=== PATIENT | female | born 1955 | race Caucasian/White ===

== ENCOUNTER 2021-06-28 11:00 | Emergency (ER) | payer MEDICARE ==
[~2021-06-28] VITALS: Ht 162.6 cm; Wt 64.0 kg
--- NOTE | 2021-06-28 11:55 | PHYS DOC ---
Past Medical History Past Surgical History: No Surgical History General Adult EDM: Chief Complaint: ANIMAL BITE HPI: HPI: Patient is a 65 year old female who presents the ED today with dog bite to the left forearm. Patient states she was bit by her puppy yesterday. She has other on the dog bites to bilateral forearms that are not infected. Patient states her puppy is up-to-date with its shots. Review of Systems: Review of Systems: Constitutional: Denies fever or chills. [] Musculoskeletal: Denies back pain or joint pain. [] Integument: Reports dog bite to the left forearm Neurologic: Denies headache, focal weakness or sensory changes. [] Psychiatric: Denies depression or anxiety. [] Heart Score: C/O Chest Pain: N/A Risk Factors: Risk Factors: DM, Current or recent (<one month) smoker, HTN, HLP, family history of CAD, obesity. Risk Scores: Score 0 - 3: 2.5% MACE over next 6 weeks - Discharge Home Score 4 - 6: 20.3% MACE over next 6 weeks - Admit for Clinical Observation Score 7 - 10: 72.7% MACE over next 6 weeks - Early Invasive Strategies Current Medications: Current Medications Medications (Trade) Dose Ordered Sig/Lisbet Start Time Stop Time Status Last Admin Dose Admin Diphtheria/ Tetanus/Acell Pertussis (ADACEL TDap SYRINGE) 0.5 ml ONCE ONCE 06/28/21 12:15 06/28/21 12:16 Allergies: Allergies: Allergies Coded Allergies Type Severity Reaction Last Updated Verified No Known Drug Allergies 06/28/21 No Physical Exam: PE: Constitutional: Well developed, well nourished, no acute distress, non-toxic appearance. [] Skin: Left forearm with a new dog bite roughly 2 cm long, there is no drainage from the area. There are multiple other bruises noted on the left forearm and the right forearm from dog bites. Neurovascular exam is intact bilateral upper extremities. +2 bilateral radial pulses. Cap refill less than 2 seconds to bilateral upper extremities. Back: No tenderness, no CVA tenderness. [] Extremities: No tenderness, no cyanosis, no clubbing, ROM intact, no edema. [] Neurologic: Alert and oriented X 3, normal motor function, normal sensory function, no focal deficits noted. [] Psychologic: Affect normal, judgement normal, mood normal. [] Current Patient Data: Vital Signs: Vital Signs Date Time Temp Pulse Resp B/P (MAP) Pulse Ox O2 Delivery O2 Flow Rate FiO2 06/28/21 11:30 98.7 90 16 145/77 (99) 98 Room Air 98.7 EKG: EKG: [] Radiology/Procedures: Radiology/Procedures: [] Course & Med Decision Making: Course & Med Decision Making Pertinent Labs and Imaging studies reviewed. (See chart for details) This a 65-year-old female patient presented to the ED today with dog bites to bilateral upper extremities. Some of them are old. The new one on the left forearm occurred yesterday and its not infected. Was given tetanus in the ED and discharged on Augmentin. Follow-up with PCP in a week. Provided return precautions and wound care instructions Corine Disclaimer: Corine Disclaimer: This electronic medical record was generated, in whole or in part, using a voice recognition dictation system. Departure Departure Impression: Primary Impression: Dog bite of arm Qualified Codes: S41.151A - Open bite of right upper arm, initial encounter; W54.0XXA - Bitten by dog, initial encounter Disposition: HOME / SELF CARE / HOMELESS Condition: STABLE Referrals: ROSITA WALLER MD (PCP) follow up in one week Patient Instructions: Animal Bite, [id number] Additional Instructions: You have dog bites. Please keep the areas clean and dry. You can wash them with basic soap and water. Cover them if they are draining or bleeding. Take the prescribed antibiotics until completed. Follow-up with your primary care doctor in 1 to 2 weeks. Come back to the ED at any point symptoms worsen. Scripts Amoxicillin/Potassium Clav (AUGMENTIN 875-125 TABLET) 1 Each Tablet 1 TAB PO BID for 10 Days, #20 TAB 0 Refills Prov: ATIF BRAVO ROXI 06/28/21 ATIF BRAVO ROXI Jun 28, 2021 11:55
[2021-06-28] MEDS ORDERED: AMOX1TAB61 PO (12:01)
[2021-06-28 12:11] VITALS: BP 144/71
[2021-06-28] MEDS ORDERED: DIPH,PERTUSS(ACELL),TET VAC/PF 0.5 ML SYRINGE. VAX IM ONE (12:15)
== END 2021-06-28 12:23 | disposition home or self-care (01) ==
LOC: ER 11:00
DX: S50.12XA Contusion of left forearm, initial encounter (principal); S50.11XA Contusion of right forearm, initial encounter; W54.0XXA Bitten by dog, initial encounter; Y93.89 Activity, other specified; Y92.89 Other specified places as the place of occurrence of the external cause; Y99.8 Other external cause status
CPT/HCPCS: 90471; 90715; 99283

== ENCOUNTER 2021-09-12 05:46 | Inpatient (IN) | payer MEDICARE ==
[~2021-09-12] VITALS: Ht 160 cm; Wt 51.5 kg
[~2021-09-12 05:46] MED LIST: AMOX1TAB61 PO
[2021-09-12] MEDS ORDERED: DEXAMETHASONE SOD PHOS 4 MG/ML VIAL IVP ONE (06:45)
[2021-09-12] MEDS ORDERED: IV NORMAL SALINE 1000ML BAG 1,000 ML IV ONE (06:45)
[2021-09-12] MEDS ORDERED: IPRATRPIUM/ALBUTEROL 0.5/2.5MG 3 ML NEBU. NEB ONE (06:45)
--- NOTE | 2021-09-12 06:50 | PHYS DOC ---
Past Medical History Past Medical History: Hypertension, Hypothyroid Past Surgical History: , Tubal ligation Smoking Status: Current Every Day Smoker Additional Information: Approximately [id number]-[id number] history of 1 pack/day smoking Alcohol Use: Occasionally Additional Information: Reports only drinking beer, estimates about 10/week. Denies being a daily drinker Drug Use: None Social History Narrative: Works at a daycare General Adult EDM: Chief Complaint: GENERALIZED BODY ACHES HPI: HPI: Patient is a 66-year-old female presenting to the emergency department through triage with a chief complaint of feeling "sick". Patient reports about a 1 week history of head cold which progressed to severe diffuse arthralgias, myalgias. Approximately 4 days ago she additionally reported having shortness of breath. She reports taking approximately 10 minimal relief, her last dose was at 0200 hrs. this morning. She endorses nausea and a loss of appetite with decreased p.o. intake since . She reports she has been attempting to maintain adequate fluid intake. She denies any vomiting. She denies having a fever guy maryan she does report fever symptoms, chills, shakes. She has not had her flu vaccine this year, she has never had a Covid vaccine. She has no history of known Covid exposure but she does work at a daycare center, no prior history of past Covid infection. Review of Systems: Review of Systems: Constitutional: Endorses chills, rigors, alternating between hot and cold Eyes: Denies redness or eye pain HENT: Denies nasal congestion or sore throat Respiratory: Reports cough, shortness of breath Cardiovascular: Reports a chest heavinessnot associated with exertion GI: Reports nausea; denies vomiting, diarrhea : Denies dysuria or hematuria Musculoskeletal: Reports bilateral lower back pain, diffuse arthralgias, diffuse myalgias Integument: Denies rash or skin lesions Neurologic: focal weakness or sensory changes; reports headache Complete systems were reviewed and found to be within normal limits, except as documented in this note. Heart Score: C/O Chest Pain: Yes HEART Score for Chest Pain: HEART Score for Chest Pain Response (Comments) Value History Slighlty/Non-Suspicious 0 ECG Normal 0 Age > 65 2 Risk Factors 1 or 2 Risk Factors 1 Troponin < Normal Limit 0 Total 3 Risk Factors: Risk Factors: DM, Current or recent (<one month) smoker, HTN, HLP, family history of CAD, obesity. Risk Scores: Score 0 - 3: 2.5% MACE over next 6 weeks - Discharge Home Score 4 - 6: 20.3% MACE over next 6 weeks - Admit for Clinical Observation Score 7 - 10: 72.7% MACE over next 6 weeks - Early Invasive Strategies Current Medications: Current Medications Medications (Trade) Dose Ordered Sig/Lisbet Start Time Stop Time Status Last Admin Dose Admin Albuterol/ Ipratropium (Duoneb) 3 ml 1X ONCE 09/12/21 06:45 09/12/21 06:46 UNV Dexamethasone Sodium Phosphate (Decadron) 10 mg 1X ONCE 09/12/21 06:45 09/12/21 06:46 UNV Sodium Chloride 1,000 ml @ 1,000 mls/hr 1X ONCE 09/12/21 06:45 09/12/21 07:44 UNV Allergies: Allergies: Allergies Coded Allergies Type Severity Reaction Last Updated Verified No Known Drug Allergies 06/28/21 No Physical Exam: PE: Constitutional: Well developed, skinny, mild distress, non-toxic appearance, sitting upright HENT: Normocephalic, atraumatic, no appreciated nasal congestion Eyes: PERRL, conjunctiva normal, no discharge Neck: Normal range of motion, no tenderness, supple, no JVD, trachea midline Lungs & Thorax: Mild shortness of breath, normal chest wall excursion bilaterally, diffuse expiratory wheezing heard in all lott bilaterally Cardiovascular: S1/S2 heart sounds appreciated, +2 peripheral pulses tachycardic, regular rate regular rhythm Abdomen: Soft, no tenderness Skin: Warm, dry, no erythema, no rash Back: No tenderness, no CVA tenderness Extremities: No tenderness, ROM intact, no edema Neurologic: Alert and oriented X 3, normal motor function, normal sensory function, no focal deficits noted Psychologic: Affect normal, judgment normal Current Patient Data: Vital Signs: Vital Signs Date Time Temp Pulse Resp B/P (MAP) Pulse Ox O2 Delivery O2 Flow Rate FiO2 09/12/21 06:15 99.2 110 13 113/67 (82) 94 Room Air 99.2 EKG: EKG: EKG taken at 0650 hrs. normal sinus rhythm rate of 97 bpm. CA interval 132 ms, QRS interval 82 ms, QT/QTc 394 ms, [address] segments at baseline, no ectopy, no acute ischemic changes appreciated Radiology/Procedures: Radiology/Procedures: [] Impression: PROCEDURE: CHEST AP ONLY EXAM: AP View of the chest DATE: 09/12/2021 7:55 AM INDICATION: Reason: SOA, cough, COVID positive / Spl. Instructions: / History: COMPARISON: No Prior FINDINGS: The heart is not enlarged. Mediastinal and hilar contours are normal. Patchy left lung base and right lower lung airspace opacities likely consolidative process such as pneumonia. No pleural effusion or pneumothorax. IMPRESSION: Patchy left lung base and right lower lung airspace opacities likely consolidative process such as pneumonia. Electronically signed by: Cam Ellington MD (09/12/2021 8:30 AM) [id number] Course & Med Decision Making: Course & Med Decision Making 66-year-old female presents to the emergency department with a chief complaint of 1 week of diffuse arthralgias, myalgias, headache, recently new onset mild shortness of breath. Patient attempting to manage at home with p.o. fluid intake and naproxen to no relief. Patient is unvaccinated against flu and Covid. Plan for IV, IV fluids, blood work, x-ray, EKG, test for Covid and flu, symptomatic management. Patient is Covid positive based on test taken today in the department. Chest x- ray demonstrates bilateral small lower lobe consolidations consistent with pneumonia. Based on observation of cardiac monitoring patient's O2 saturations have fallen and sustained into the high 80s with a well-visualized O2 pleth, during conversations with the patient her O2 sats would increase to the low 90s. Supplemental oxygen was applied to the patient via nasal cannula 2 L/min. Patient informed of current results, discussed potential for admission to hospital due to need for supplemental oxygen as well as Covid pneumonia. Patient requiring admission for further evaluation and treatment. Discussed with (PCP) who is in agreement with admission. Discussed findings and plan with patient, who acknowledges understanding and agreement. COVID-19 CRITERIA: The patient was evaluated during the global COVID-19 pandemic, and that diagnosis was suspected/considered upon their initial presentation. Their evaluation, treatment and testing was consistent with current guidelines for patients who present with complaints or symptoms that may be related to COVID-19. Corine Disclaimer: Dragjeanie Disclaimer: This electronic medical record was generated, in whole or in part, using a voice recognition dictation system. Departure Departure Impression: Primary Impression: Pneumonia due to COVID-19 virus Additional Impression: Hypoxia Disposition: ADMITTED INPATIENT Admitting Physician: Joe De La Rosa Condition: GUARDED Referrals: JOE DE LA ROSA MD (PCP) COVID-19 Assessment: COVID-19 Patient Risks: Age 65 or older: Yes Sign of co-morbidity: Yes Exp to person + for COVID: No Exp to PUI: No Travel from affected area: No Lower respiratory symptoms: Yes Fever: Yes Other: Yes PPE Use: Full PPE with N95 mask or PAPR: Yes Critical Care Time Critical care time was 30 minutes which includes time at bedside, spent in discussion of patient's care with specialists and/or family members, with interpretation of laboratory and/or radiological studies and is exclusive of procedures. JOE MASCORRO DO Sep 12, 2021 06:49
[2021-09-12 07:20] LABS: INFLUENZA A PATIENT NEGATIVE (NEGATIVE); INFLUENZA B PATIENT NEGATIVE (NEGATIVE)
[2021-09-12 07:34] LABS: BASO % 0 % (0-3); EOS % 0 % (0-3); HEMATOCRIT 43.5 % (36.0-47.0); HEMOGLOBIN 14.7 g/dL (12.0-15.5); LYMPH # 1.4 x10^3/uL (1.0-4.8); LYMPH % 24 % (24-48); MEAN CORPUSCULAR HEMOGLOBIN 33 pg (25-35); MEAN CORPUSCULAR HGB CONC 34 g/dL (31-37); MEAN CORPUSCULAR VOLUME 97 fL (79-100); MONO # 0.6 x10^3/uL (0.0-1.1); MONO % 11 % (0-9); NEUT # 3.7 x10^3/uL (1.8-7.7); NEUT % 65 % (31-73); PLATELET COUNT 151 x10^3/uL (140-400); RED CELL DISTRIBUTION WIDTH 14.2 % (11.5-14.5); WHITE BLOOD COUNT 5.8 x10^3/uL (4.0-11.0)
[2021-09-12 07:46] LABS: CALCIUM 8.3 mg/dL (8.5-10.1); CREATININE 0.8 mg/dL (0.6-1.0); GFR 71.8; POTASSIUM 3.7 mmol/L (3.5-5.1)
[2021-09-12 07:53] LABS: ALBUMIN 3.3 g/dL (3.4-5.0); TOTAL BILIRUBIN 0.3 mg/dL (0.2-1.0); TOTAL PROTEIN 6.6 g/dL (6.4-8.2)
[2021-09-12 08:09] LABS: CREATINE KINASE 17 U/L (26-192)
--- NOTE | 2021-09-12 08:33 | RAD ---
EXAM: AP View of the chest DATE: 09/12/2021 7:55 AM INDICATION: Reason: SOA, cough, COVID positive / Spl. Instructions: / History: COMPARISON: No Prior FINDINGS: The heart is not enlarged. Mediastinal and hilar contours are normal. Patchy left lung base and right lower lung airspace opacities likely consolidative process such as pn eumonia. No pleural effusion or pneumothorax. IMPRESSION: Patchy left lung base and right lower lung airspace opacities likely consolidative process such as pn eumonia. Electronically signed by: Cam Ellington MD (09/12/2021 8:30 AM) [id number]
[2021-09-12] MEDS ORDERED: NICOTINE 21MG PATCH. TD ONE (09:45)
[2021-09-12] MEDS ORDERED: AZITHRMYCN 500MG IVPB FOR OMNI 250 ML IV ONE (10:15)
[2021-09-12] MEDS ORDERED: cefTRIAXone IV Push 1 GM VIAL. IVP ONE (10:15)
[2021-09-12] MEDS ORDERED: ONDANSETRON PF 4 MG/2 ML VIAL. IVP PRN (10:45)
[2021-09-12] MEDS ORDERED: ACETAMINOPHEN 325 MG TABLET. PO PRN (10:45)
--- NOTE | 2021-09-12 11:37 | EKG ---
[facility] [address] [place] [address] Test Date: 2021-09-12 Test Time: 06:50:13 Pat Name: ABY MARCELO Department: Room: ED HOLD 21 Gender: F Cat Skinner: : 1955 Requested By: ROSITA MASCORRO Order Number: [id number] Reading MD: Schuyler Elizabeth MD Measurements Intervals [place] Rate: 97 P: 42 TN: 132 QRS: -61 QRSD: 82 T: 84 QT: 394 QTc: 505 Interpretive Statements SINUS RHYTHM NON-SPECIFIC ST/T CHANGES Electronically Signed On 09-17-2021 11:46:05 BUFFER MACHINE by Schuyler Elizabeth MD
[2021-09-12] MEDS: IV NORMAL SALINE 1000ML BAG 1,000 ML IV SCH ×3 (11:40→21:12)
[2021-09-12] MEDS: IPRATRPIUM/ALBUTEROL 0.5/2.5MG 3 ML NEBU. NEB SCH ×2 (11:59→19:02)
--- NOTE | 2021-09-12 16:51 | PDOC ---
Provider Note Date of Service: DATE: 09/12/21 TIME: 16:50 Provider Note history and physical dictated # [id number] Justifications for Admission Other Justification ROSITA WALLER MD Sep 12, 2021 16:50
[2021-09-12 19:45] VITALS: BP 102/57
--- NOTE | 2021-09-12 19:49 | NUR ---
At 19:50 PM The patient, ABY MARCELO, 66 y/o, F admitted by ROSITA WALLER MD, was given written information regarding hospital policies, unit procedures and contact persons. Valuables were checked and left with her.
--- NOTE | 2021-09-12 20:58 | HP ---
DATE OF SERVICE: 09/12/2021 ADMIT DATE: 09/12/2021 LOCATION: She is still in the holding area in the Emergency Room in room 21. HISTORY OF PRESENT ILLNESS: The patient is a 66-year-old white female with history of hypertension, hyperlipidemia, hypothyroidism, anxiety, cigarette smoker, smoked 1 pack per day for 40 years and has a chronic cough with scant sputum. She has not received her COVID-19 viral vaccinations and noted a 1-week history of diffuse arthralgias and myalgias and a 4-day history of shortness of breath. She also has had some nausea and a poor appetite since last and she is not even having any vomiting, denies any fever. The patient sought help at [facility] Emergency Room, where her COVID-19 viral test was positive, influenza screen was negative. Chest x-ray showed bilateral lung infiltrates consistent with pneumonia and she was diagnosed with COVID-19 viral pneumonia. In the Emergency Room doctor told me that she was initially hypoxic and started her on oxygen 2 liters per nasal cannula. She is therefore admitted for further evaluation and treatment of her COVID-19 viral pneumonia and acute hypoxic respiratory failure. ALLERGIES: None. MEDICATIONS: Include sertraline 100 mg every day, lovastatin 10 mg every day, levothyroxine 125 mcg every day, aspirin 325 mg every day, amlodipine is 10 mg every day, alprazolam 0.25 mg b.i.d. p.r.n., albuterol inhaler 1-2 puffs every 6 hours p.r.n. PAST MEDICAL HISTORY: Significant for hypertension, hyperlipidemia, hypothyroidism, anxiety. She is a cigarette smoker. PAST SURGICAL HISTORY: She has had a section in the past. SOCIAL HISTORY: Alcohol: She has a couple of drinks a day and she smokes 1 pack per day of cigarettes. FAMILY HISTORY: Father had alcoholism. Mother had coronary artery disease, breast cancer and diabetes. REVIEW OF SYSTEMS: GENERAL: She denies any fever or chills. CARDIOVASCULAR: No chest pain. PULMONARY: She has had a cough, some clear sputum. GASTROINTESTINAL: She has had decreased appetite and some nausea. ENDOCRINE: She has no diabetes mellitus. SKIN: No rashes. The rest of systems reviewed and are negative except as stated in history of present illness. PHYSICAL EXAMINATION: VITAL SIGNS: Temperature is 99.2 degrees, heart rate is 84, respiratory rate 22, blood pressure 114/58, oxygen saturation was 95% on 2 liters per nasal cannula. HEENT: Eyes: Gaze is conjugate. Mouth: Tongue is midline. NECK: There is no cervical lymphadenopathy or thyroid enlargement. HEART: Reveals an S1, S2. There is no S3 or murmur. LUNGS: Reveal some bilateral rhonchi and wheezing. ____ posteriorly. ABDOMEN: Soft. No hepatosplenomegaly, masses or tenderness. EXTREMITIES: Lower extremities without edema. SKIN: No rashes. NEUROLOGIC: She is coherent with no focal weakness in the arms or legs. LABORATORY DATA: Review of her laboratory test, her COVID-19 rapid test was positive, influenza A and B negative. White count 5.8; hemoglobin 14.7; platelet count 151,000; 65 polys and 24 lymphocytes. Sodium 134, potassium 3.7, chloride 100, total CO2 is 26, BUN 6, creatinine 0.8. The blood sugar is 122. Lactic acid level 1.1. Liver function test normal. Calcium 8.3. CPK of 17. Her albumin was 3.3. DIAGNOSTIC DATA: He had a chest x-ray done, which showed a patchy left lung base and right lower lung airspace opacities consistent most likely with a consolidative process such as pneumonia. There is no pleural effusion or pneumothorax. She had an electrocardiogram done, but I do not have the report. ASSESSMENT: 1. COVID-19 viral pneumonia. 2. Acute hypoxic respiratory failure due to COVID-19 viral pneumonia. 3. Hypertension. 4. Hyperlipidemia. 5. Hypothyroidism. 6. Cigarette smoker. PLAN: At this time is to admit her to the hospital. We will consult Dr. Gaona for Pulmonary and Dr. Kwasi Hopper for Infectious Disease. She received 10 mg of dexamethasone IV in the Emergency Room and we will order 6 mg IV daily and put her on some IV Rocephin and Zithromax. Resume most of her home medications. We will hold the amlodipine as her blood pressure is on the low side of normal. We will order some IV fluids just to keep her well hydrated. Repeat the labs tomorrow. She will be in COVID-19 viral isolation. We will order Lovenox for deep vein thrombosis prophylaxis and put her on famotidine 20 mg every day. Thank you very much. HAILE/JEAN DR: Júnior TID: [id number]
[2021-09-12] MEDS: ALPRAZolam 0.25 MG TABLET PO PRN (21:06)
[2021-09-12] MEDS: IPRATROPIUM/ALBUTEROL 20/100mcg/INH INHALER. INH SCH (21:07)
[2021-09-12] MEDS: ENOXAPARIN 40 MG/0.4 ML SYRINGE. SQ SCH (21:07)
[2021-09-12] MEDS: FAMOTIDINE 20 MG TABLET. PO SCH (21:08)
[2021-09-12] MEDS: ATORVASTATIN CALCIUM 10 MG TABLET. PO SCH (21:08)
[2021-09-12 23:00] VITALS: BP 119/67
[2021-09-13 03:00] VITALS: BP 132/69
[2021-09-13 06:18] LABS: BASO % 0 % (0-3); EOS % 0 % (0-3); HEMATOCRIT 39.3 % (36.0-47.0); LYMPH # 1.6 x10^3/uL (1.0-4.8); LYMPH % 34 % (24-48); MEAN CORPUSCULAR HEMOGLOBIN 32 pg (25-35); MEAN CORPUSCULAR HGB CONC 33 g/dL (31-37); MEAN CORPUSCULAR VOLUME 97 fL (79-100); MONO # 0.4 x10^3/uL (0.0-1.1); MONO % 10 % (0-9); NEUT # 2.5 x10^3/uL (1.8-7.7); NEUT % 56 % (31-73); PLATELET COUNT 159 x10^3/uL (140-400); RED BLOOD COUNT 4.06 x10^6/uL (3.50-5.40); RED CELL DISTRIBUTION WIDTH 14.3 % (11.5-14.5); WHITE BLOOD COUNT 4.5 x10^3/uL (4.0-11.0)
[2021-09-13] MEDS: IV NORMAL SALINE 1000ML BAG 1,000 ML IV SCH ×2 (06:36→09:00)
[2021-09-13] MEDS: LEVOTHYROXINE 125 MCG TABLET PO SCH (06:36)
[2021-09-13 06:42] LABS: CALCIUM 8.1 mg/dL (8.5-10.1); CREATININE 0.4 mg/dL (0.6-1.0); GFR 159.7; POTASSIUM 4.2 mmol/L (3.5-5.1)
[2021-09-13 07:00] VITALS: BP 127/73
--- NOTE | 2021-09-13 08:20 | PDOC ---
PULMONARY PROGRESS NOTES DATE: 09/13/21 TIME: 08:20 Vitals Vital Signs Date Time Temp Pulse Resp B/P (MAP) Pulse Ox O2 Delivery O2 Flow Rate FiO2 09/13/21 03:00 96.4 75 18 132/69 (90) 97 96.4 09/12/21 23:00 2.0 09/12/21 20:00 Nasal Cannula Labs Laboratory Tests Test 09/12/21 06:50 09/12/21 07:14 09/13/21 04:45 Influenza Type A Antigen Negative (NEGATIVE) Influenza Type B Antigen Negative (NEGATIVE) SARS-CoV-2 Antigen (Rapid) Positive (NEGATIVE) White Blood Count 5.8 x10^3/uL (4.0-11.0) 4.5 x10^3/uL (4.0-11.0) Red Blood Count 4.50 x10^6/uL (3.50-5.40) 4.06 x10^6/uL (3.50-5.40) Hemoglobin 14.7 g/dL (12.0-15.5) 13.0 g/dL (12.0-15.5) Hematocrit 43.5 % (36.0-47.0) 39.3 % (36.0-47.0) Mean Corpuscular Volume 97 fL (79-100) 97 fL (79-100) Mean Corpuscular Hemoglobin 33 pg (25-35) 32 pg (25-35) Mean Corpuscular Hemoglobin Concent 34 g/dL (31-37) 33 g/dL (31-37) Red Cell Distribution Width 14.2 % (11.5-14.5) 14.3 % (11.5-14.5) Platelet Count 151 x10^3/uL (140-400) 159 x10^3/uL (140-400) Neutrophils (%) (Auto) 65 % (31-73) 56 % (31-73) Lymphocytes (%) (Auto) 24 % (24-48) 34 % (24-48) Monocytes (%) (Auto) 11 % (0-9) 10 % (0-9) Eosinophils (%) (Auto) 0 % (0-3) 0 % (0-3) Basophils (%) (Auto) 0 % (0-3) 0 % (0-3) Neutrophils # (Auto) 3.7 x10^3/uL (1.8-7.7) 2.5 x10^3/uL (1.8-7.7) Lymphocytes # (Auto) 1.4 x10^3/uL (1.0-4.8) 1.6 x10^3/uL (1.0-4.8) Monocytes # (Auto) 0.6 x10^3/uL (0.0-1.1) 0.4 x10^3/uL (0.0-1.1) Eosinophils # (Auto) 0.0 x10^3/uL (0.0-0.7) 0.0 x10^3/uL (0.0-0.7) Basophils # (Auto) 0.0 x10^3/uL (0.0-0.2) 0.0 x10^3/uL (0.0-0.2) Sodium Level 134 mmol/L (136-145) 143 mmol/L (136-145) Potassium Level 3.7 mmol/L (3.5-5.1) 4.2 mmol/L (3.5-5.1) Chloride Level 100 mmol/L (98-107) 108 mmol/L (98-107) Carbon Dioxide Level 26 mmol/L (21-32) 25 mmol/L (21-32) Anion Gap 8 (6-14) 10 (6-14) Blood Urea Nitrogen 6 mg/dL (7-20) 7 mg/dL (7-20) Creatinine 0.8 mg/dL (0.6-1.0) 0.4 mg/dL (0.6-1.0) Estimated GFR (Cockcroft-Gault) 71.8 159.7 BUN/Creatinine Ratio 8 (6-20) Glucose Level 122 mg/dL (70-99) 110 mg/dL (70-99) Lactic Acid Level 1.1 mmol/L (0.4-2.0) Calcium Level 8.3 mg/dL (8.5-10.1) 8.1 mg/dL (8.5-10.1) Magnesium Level 2.0 mg/dL (1.8-2.4) Total Bilirubin 0.3 mg/dL (0.2-1.0) Aspartate Amino Transf (AST/SGOT) 18 U/L (15-37) Alanine Aminotransferase (ALT/SGPT) 25 U/L (14-59) Alkaline Phosphatase 101 U/L (46-116) Creatine Kinase 17 U/L (26-192) Creatine Kinase MB (Mass) < 0.5 ng/mL (0.0-3.6) Creatine Kinase MB Relative Index % (0-4) Troponin I High Sensitivity 6 ng/L (4-50) Total Protein 6.6 g/dL (6.4-8.2) Albumin 3.3 g/dL (3.4-5.0) Albumin/Globulin Ratio 1.0 (1.0-1.7) Laboratory Tests Test 09/13/21 04:45 White Blood Count 4.5 x10^3/uL (4.0-11.0) Red Blood Count 4.06 x10^6/uL (3.50-5.40) Hemoglobin 13.0 g/dL (12.0-15.5) Hematocrit 39.3 % (36.0-47.0) Mean Corpuscular Volume 97 fL (79-100) Mean Corpuscular Hemoglobin 32 pg (25-35) Mean Corpuscular Hemoglobin Concent 33 g/dL (31-37) Red Cell Distribution Width 14.3 % (11.5-14.5) Platelet Count 159 x10^3/uL (140-400) Neutrophils (%) (Auto) 56 % (31-73) Lymphocytes (%) (Auto) 34 % (24-48) Monocytes (%) (Auto) 10 % (0-9) Eosinophils (%) (Auto) 0 % (0-3) Basophils (%) (Auto) 0 % (0-3) Neutrophils # (Auto) 2.5 x10^3/uL (1.8-7.7) Lymphocytes # (Auto) 1.6 x10^3/uL (1.0-4.8) Monocytes # (Auto) 0.4 x10^3/uL (0.0-1.1) Eosinophils # (Auto) 0.0 x10^3/uL (0.0-0.7) Basophils # (Auto) 0.0 x10^3/uL (0.0-0.2) Sodium Level 143 mmol/L (136-145) Potassium Level 4.2 mmol/L (3.5-5.1) Chloride Level 108 mmol/L (98-107) Carbon Dioxide Level 25 mmol/L (21-32) Anion Gap 10 (6-14) Blood Urea Nitrogen 7 mg/dL (7-20) Creatinine 0.4 mg/dL (0.6-1.0) Estimated GFR (Cockcroft-Gault) 159.7 Glucose Level 110 mg/dL (70-99) Calcium Level 8.1 mg/dL (8.5-10.1) Medications Active Scripts Medications Dose Route/Sig Max Daily Dose Days Date Category Augmentin 875-125 Tablet (Amoxicillin/Potassium Clav) 1 Each Tablet 1 Tab PO BID 10 06/28/21 Rx Impression . full note dictated continue support thanks KONG KNOTT MD Sep 13, 2021 08:20
[2021-09-13] MEDS: SERTRALINE 50 MG TABLET. PO SCH (08:57)
[2021-09-13] MEDS: AZITHROMYCIN 250 MG TABLET. PO SCH (08:57)
[2021-09-13] MEDS: IPRATROPIUM/ALBUTEROL 20/100mcg/INH INHALER. INH SCH ×4 (08:57→21:36)
[2021-09-13] MEDS: DEXAMETHASONE SOD PHOS 4 MG/ML VIAL IVP SCH (08:58)
[2021-09-13] MEDS ORDERED: cefTRIAXone IV Push 1 GM VIAL. IVP SCH (10:00)
--- NOTE | 2021-09-13 10:29 | CONS ---
DATE OF CONSULTATION: 09/13/2021 REFERRING PHYSICIAN: Dr. De La Rosa. REASON FOR CONSULTATION: COVID-19 pneumonia, antibiotic management. HISTORY OF PRESENT ILLNESS: A 66-year-old female with history of smoking, who had a lot of people at her home during . She had loss of appetite. She felt very tired with arthralgia and myalgia. She had some nausea and not feeling well. Her shortness of breath and cough got little worse than her usual as she is a smoker and has chronic bronchitis. She presented to the ER. Influenza screen was negative. COVID-19 test returned positive. White count was normal. Chest x-ray showed bilateral lung infiltrates. The patient was started on azithromycin and ceftriaxone. The patient is also on dexamethasone. ID consultation has been requested for antibiotic management. Today, the patient feels much better. She is back on 1 liter O2 by nasal cannula. She feels like she is eager for discharge. Cough is improving. Denies any chest pain. Appetite is improving. Denies any headache, sore throat, nausea, vomiting, change in bowel frequency or symptoms. PAST MEDICAL HISTORY: Hypertension, hyperlipidemia, hypothyroidism, anxiety, cigarette smoker. PAST SURGICAL HISTORY: As per HPI. SOCIAL HISTORY: Continues to smoke. Alcohol, rare. 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 FAMILY HISTORY: As per HPI. REVIEW OF SYSTEMS: Negative except for above in HPI. PHYSICAL EXAMINATION: VITAL SIGNS: Temperature 97.3, pulse 82, respiratory rate 18, blood pressure 127/73, oxygen saturation 100% on 1 liter O2 by nasal cannula. GENERAL: Alert, oriented x 3 female, in no acute distress, lying comfortably in bed, looks better. Nontoxic-appearing. HEENT: Normocephalic, atraumatic. Anicteric. Oral mucosa is dry. NECK: Supple, no JVD, no lymphadenopathy. LUNGS: Clear bilaterally except for some scattered rhonchi. No accessory muscle use. ABDOMEN: Soft, nontender, nondistended, no rebound or guarding. EXTREMITIES: No edema, no cyanosis. DERMATOLOGIC: Warm, dry, no generalized rash. NEUROLOGIC: Alert, oriented x 3, grossly nonfocal. PSYCHIATRIC: Calm and cooperative. LABORATORY DATA: SARS-COVID positive. Influenza screen negative. WBC 4.5, hemoglobin 13.0, hematocrit 39.3, platelets 159. Sodium 143, potassium 4.2, chloride 108, bicarbonate 25, creatinine 0.4, BUN 7, lactate 1.1. IMAGING: Chest x-ray as above. IMPRESSION: 1. COVID-19 pneumonia. 2. Generalized myalgia. 3. Acute hypoxic respiratory failure. 4. Hypertension/hyperlipidemia. 5. Anxiety. 6. Tobacco dependence. RECOMMENDATIONS: 1. Continue azithromycin. 2. Discontinue ceftriaxone. 3. Continue supportive care. 4. Steroids per primary. 5. Pulmonary team consulted. Thank you for consulting Infectious Disease to participate in this patient's care. If you have any questions, do not hesitate to contact me. Discussed with RN. ENRIQUETA DR: Rachell TID: [phone] CLAU
[2021-09-13 11:00] VITALS: BP 139/75
--- NOTE | 2021-09-13 11:02 | NUR ---
SW following. Discussed with RN, pt from home, 2L (but sating at 100%), regular diet. COVID-19 positive. Pt wanting to go home per RN. RN advised no SW needs at this time. SW will continue to follow.
--- NOTE | 2021-09-13 11:56 | PDOC ---
PROGRESS NOTES Date of Service DATE: 09/13/21 TIME: 11:53 Subjective Subjective feels better. less cough with clear sputum. not short of breath. oxygen sats 93% on 1 LNC. lab reviewed. Objective Objective Vital Signs Date Time Temp Pulse Resp B/P (MAP) Pulse Ox O2 Delivery O2 Flow Rate FiO2 09/13/21 11:00 97.4 84 18 139/75 (96) 95 97.4 09/13/21 08:00 Nasal Cannula 1.0 Intake and Output 09/13/21 07:00 Intake Total 1610 ml Balance 1610 ml Intake Oral 360 ml IV Total 1250 ml # Voids 2 Physical Exam Abdomen: Soft Heart: Regular rate, Normal S1, Normal S2 Extremities: No edema General: Alert HEENT: Atraumatic Lungs: Other (few rhonchi. decreased breath sounds) Neuro: Normal speech Psych/Mental Status: Mental status NL Skin: No rashes Assessment Assessment Problems1. COVID-19 viral pneumonia. 2. Acute hypoxic respiratory failure due to COVID-19 viral pneumonia. 3. Hypertension. 4. Hyperlipidemia. 5. Hypothyroidism. 6. Cigarette smoker. Medical Problems: (1) Hypoxia Status: Acute (2) Pneumonia due to COVID-19 virus Status: Acute Plan Plan of Care check RA oxygen saturation and try to wean off of oxygen iv dexamethasone and rocephin and iv fluids Comment Review of Relevant I have reviewed the following items brian (where applicable) has been applied. Labs Laboratory Tests Test 09/12/21 06:50 09/12/21 07:14 09/13/21 04:45 Influenza Type A Antigen Negative (NEGATIVE) Influenza Type B Antigen Negative (NEGATIVE) SARS-CoV-2 Antigen (Rapid) Positive (NEGATIVE) White Blood Count 5.8 x10^3/uL (4.0-11.0) 4.5 x10^3/uL (4.0-11.0) Red Blood Count 4.50 x10^6/uL (3.50-5.40) 4.06 x10^6/uL (3.50-5.40) Hemoglobin 14.7 g/dL (12.0-15.5) 13.0 g/dL (12.0-15.5) Hematocrit 43.5 % (36.0-47.0) 39.3 % (36.0-47.0) Mean Corpuscular Volume 97 fL (79-100) 97 fL (79-100) Mean Corpuscular Hemoglobin 33 pg (25-35) 32 pg (25-35) Mean Corpuscular Hemoglobin Concent 34 g/dL (31-37) 33 g/dL (31-37) Red Cell Distribution Width 14.2 % (11.5-14.5) 14.3 % (11.5-14.5) Platelet Count 151 x10^3/uL (140-400) 159 x10^3/uL (140-400) Neutrophils (%) (Auto) 65 % (31-73) 56 % (31-73) Lymphocytes (%) (Auto) 24 % (24-48) 34 % (24-48) Monocytes (%) (Auto) 11 % (0-9) 10 % (0-9) Eosinophils (%) (Auto) 0 % (0-3) 0 % (0-3) Basophils (%) (Auto) 0 % (0-3) 0 % (0-3) Neutrophils # (Auto) 3.7 x10^3/uL (1.8-7.7) 2.5 x10^3/uL (1.8-7.7) Lymphocytes # (Auto) 1.4 x10^3/uL (1.0-4.8) 1.6 x10^3/uL (1.0-4.8) Monocytes # (Auto) 0.6 x10^3/uL (0.0-1.1) 0.4 x10^3/uL (0.0-1.1) Eosinophils # (Auto) 0.0 x10^3/uL (0.0-0.7) 0.0 x10^3/uL (0.0-0.7) Basophils # (Auto) 0.0 x10^3/uL (0.0-0.2) 0.0 x10^3/uL (0.0-0.2) Sodium Level 134 mmol/L (136-145) 143 mmol/L (136-145) Potassium Level 3.7 mmol/L (3.5-5.1) 4.2 mmol/L (3.5-5.1) Chloride Level 100 mmol/L (98-107) 108 mmol/L (98-107) Carbon Dioxide Level 26 mmol/L (21-32) 25 mmol/L (21-32) Anion Gap 8 (6-14) 10 (6-14) Blood Urea Nitrogen 6 mg/dL (7-20) 7 mg/dL (7-20) Creatinine 0.8 mg/dL (0.6-1.0) 0.4 mg/dL (0.6-1.0) Estimated GFR (Cockcroft-Gault) 71.8 159.7 BUN/Creatinine Ratio 8 (6-20) Glucose Level 122 mg/dL (70-99) 110 mg/dL (70-99) Lactic Acid Level 1.1 mmol/L (0.4-2.0) Calcium Level 8.3 mg/dL (8.5-10.1) 8.1 mg/dL (8.5-10.1) Magnesium Level 2.0 mg/dL (1.8-2.4) Total Bilirubin 0.3 mg/dL (0.2-1.0) Aspartate Amino Transf (AST/SGOT) 18 U/L (15-37) Alanine Aminotransferase (ALT/SGPT) 25 U/L (14-59) Alkaline Phosphatase 101 U/L (46-116) Creatine Kinase 17 U/L (26-192) Creatine Kinase MB (Mass) < 0.5 ng/mL (0.0-3.6) Creatine Kinase MB Relative Index % (0-4) Troponin I High Sensitivity 6 ng/L (4-50) Total Protein 6.6 g/dL (6.4-8.2) Albumin 3.3 g/dL (3.4-5.0) Albumin/Globulin Ratio 1.0 (1.0-1.7) Laboratory Tests Test 09/13/21 04:45 White Blood Count 4.5 x10^3/uL (4.0-11.0) Red Blood Count 4.06 x10^6/uL (3.50-5.40) Hemoglobin 13.0 g/dL (12.0-15.5) Hematocrit 39.3 % (36.0-47.0) Mean Corpuscular Volume 97 fL (79-100) Mean Corpuscular Hemoglobin 32 pg (25-35) Mean Corpuscular Hemoglobin Concent 33 g/dL (31-37) Red Cell Distribution Width 14.3 % (11.5-14.5) Platelet Count 159 x10^3/uL (140-400) Neutrophils (%) (Auto) 56 % (31-73) Lymphocytes (%) (Auto) 34 % (24-48) Monocytes (%) (Auto) 10 % (0-9) Eosinophils (%) (Auto) 0 % (0-3) Basophils (%) (Auto) 0 % (0-3) Neutrophils # (Auto) 2.5 x10^3/uL (1.8-7.7) Lymphocytes # (Auto) 1.6 x10^3/uL (1.0-4.8) Monocytes # (Auto) 0.4 x10^3/uL (0.0-1.1) Eosinophils # (Auto) 0.0 x10^3/uL (0.0-0.7) Basophils # (Auto) 0.0 x10^3/uL (0.0-0.2) Sodium Level 143 mmol/L (136-145) Potassium Level 4.2 mmol/L (3.5-5.1) Chloride Level 108 mmol/L (98-107) Carbon Dioxide Level 25 mmol/L (21-32) Anion Gap 10 (6-14) Blood Urea Nitrogen 7 mg/dL (7-20) Creatinine 0.4 mg/dL (0.6-1.0) Estimated GFR (Cockcroft-Gault) 159.7 Glucose Level 110 mg/dL (70-99) Calcium Level 8.1 mg/dL (8.5-10.1) Medications Current Medications Sodium Chloride 1,000 ml @ 1,000 mls/hr 1X ONCE IV Last administered on 09/12/21at 07:18; Start 09/12/21 at 06:45; Stop 09/12/21 at 07:44; Status DC Dexamethasone Sodium Phosphate (Decadron) 10 mg 1X ONCE IVP Last administered on 09/12/21at 07:18; Start 09/12/21 at 06:45; Stop 09/12/21 at 06:46; Status DC Albuterol/ Ipratropium (Duoneb) 3 ml 1X ONCE NEB Last administered on 09/12/21at 07:15; Start 09/12/21 at 06:45; Stop 09/12/21 at 06:46; Status DC Nicotine (Nicoderm Cq 21mg) 1 patch 1X ONCE TD Last administered on 09/12/21at 10:17; Start 09/12/21 at 09:45; Stop 09/12/21 at 09:46; Status DC Ceftriaxone Sodium (Rocephin) 1 gm 1X ONCE IVP Last administered on 09/12/21at 10:17; Start 09/12/21 at 10:15; Stop 09/12/21 at 10:16; Status DC Azithromycin 250 ml @ 250 mls/hr 1X ONCE IV Last administered on 09/12/21at 10:17; Start 09/12/21 at 10:15; Stop 09/12/21 at 11:14; Status DC Ondansetron HCl (Zofran) 4 mg PRN Q8HRS PRN IVP NAUSEA/VOMITING; Start 09/12/21 at 10:45; Stop 09/13/21 at 10:44; Status DC Sodium Chloride 1,000 ml @ 100 mls/hr Q10H IV Last administered on 09/13/21at 06:36; Start 09/12/21 at 10:45; Stop 09/13/21 at 10:44; Status DC Acetaminophen (Tylenol) 650 mg PRN Q4HRS PRN PO FEVER > 100.3'F Last administered on 09/12/21at 21:07; Start 09/12/21 at 10:45; Stop 09/13/21 at 10:44; Status DC Albuterol/ Ipratropium (Duoneb) 3 ml Q6HRS NEB Last administered on 09/12/21at 11:59; Start 09/12/21 at 12:00; Stop 09/12/21 at 19:42; Status DC Dexamethasone Sodium Phosphate (Decadron) 6 mg DAILY IVP Last administered on 09/13/21at 08:58; Start 09/13/21 at 09:00 Ceftriaxone Sodium (Rocephin) 1 gm Q24H IVP Last administered on 09/13/21at 09:01; Start 09/13/21 at 10:00; Stop 09/13/21 at 09:58; Status DC Azithromycin (Zithromax) 250 mg DAILY PO Last administered on 09/13/21at 08:57; Start 09/13/21 at 09:00 Alprazolam (Xanax) 0.25 mg PRN Q8HRS PRN PO ANXIETY / AGITATION Last administered on 09/12/21at 21:06; Start 09/12/21 at 16:45 Levothyroxine Sodium (Synthroid) 125 mcg DAILY06 PO Last administered on 09/13/21at 06:36; Start 09/13/21 at 06:00 Atorvastatin Calcium (Lipitor) 10 mg QHS PO Last administered on 09/12/21at 21:08; Start 09/12/21 at 21:00 Sertraline HCl (Zoloft) 100 mg DAILY PO Last administered on 09/13/21at 08:57; Start 09/13/21 at 09:00 Enoxaparin Sodium (Lovenox 40mg Syringe) 40 mg Q24H SQ Last administered on 09/12/21at 21:07; Start 09/12/21 at 21:00 Famotidine (Pepcid) 20 mg QHS PO Last administered on 09/12/21at 21:08; Start 09/12/21 at 21:00 Sodium Chloride 1,000 ml @ 60 mls/hr [id number] IV Last administered on 09/13/21at 09:00; Start 09/12/21 at 17:00 Albuterol/ Ipratropium (Combivent Respimat 20-100 Mcg) 1 puff RTQID INH Last administered on 09/13/21at 08:57; Start 09/12/21 at 20:00 Active Scripts Active Augmentin 875-125 Tablet (Amoxicillin/Potassium Clav) 1 Each Tablet 1 Tab PO BID 10 Days Vitals/I & O Vital Sign - Last 24 Hours 09/12/21 09/12/21 09/12/21 09/12/21 12:00 12:22 13:14 13:44 Pulse 98 88 84 Resp B/P (MAP) 125/65 (85) 107/59 (75) 121/62 (81) Pulse Ox 97 95 95 O2 Delivery Nasal Cannula Nasal Cannula Nasal Cannula Nasal Cannula O2 Flow Rate 2.0 2.0 2.0 2.0 09/12/21 09/12/21 09/12/21 09/12/21 14:14 14:44 15:14 15:44 Pulse 86 86 88 84 Resp 14 20 21 22 B/P (MAP) 123/64 (83) 122/62 (82) 101/55 (70) 114/58 (76) Pulse Ox 94 95 O2 Delivery Nasal Cannula Nasal Cannula Nasal Cannula Nasal Cannula O2 Flow Rate 2.0 2.0 2.0 2.0 09/12/21 09/12/21 09/12/21 09/12/21 16:14 16:44 17:14 17:44 Pulse 92 82 86 82 Resp 21 17 19 25 B/P (MAP) 170/83 (112) 125/69 (87) 117/67 (84) 120/67 (84) Pulse Ox 97 96 97 97 O2 Delivery Nasal Cannula Nasal Cannula Nasal Cannula Nasal Cannula O2 Flow Rate 2.0 2.0 2.0 2.0 09/12/21 09/12/21 09/12/21 09/13/21 19:45 20:00 23:00 03:00 Temp 97.2 96.2 96.4 97.2 96.2 96.4 Pulse 85 77 75 Resp 20 18 18 B/P (MAP) 102/57 (72) 119/67 (84) 132/69 (90) Pulse Ox 96 97 97 O2 Delivery Nasal Cannula O2 Flow Rate 2.0 2.0 2.0 09/13/21 09/13/21 09/13/21 07:00 08:00 11:00 Temp 97.3 97.4 97.3 97.4 Pulse 82 84 Resp 18 18 B/P (MAP) 127/73 (91) 139/75 (96) Pulse Ox 100 95 O2 Delivery Nasal Cannula O2 Flow Rate 1.0 Intake and Output 09/12/21 09/12/21 09/13/21 15:00 23:00 07:00 Intake Total 1250 ml 240 ml 120 ml Balance 1250 ml 240 ml 120 ml Justifications for Admission Other Justification ROSITA WALLER MD Sep 13, 2021 11:56
[2021-09-13 15:00] VITALS: BP 124/70
--- NOTE | 2021-09-13 17:43 | CONS ---
DATE OF CONSULTATION: 09/13/2021 ATTENDING PHYSICIAN: Joe De La Rosa MD REASON FOR CONSULTATION: The patient is seen in pulmonary consultation at the request of Dr. De La Rosa for abnormal chest x-ray, SARS-CoV-2 positivity, hypoxemia. HISTORY OF PRESENT ILLNESS: The patient is a 66-year-old that was felt ill several days ago. Her symptoms progressed. She presented to the Emergency Room, tested positive for COVID-19. The patient is not vaccinated. She works in a daycare center. She states that she might have contracted COVID from her work. She denies fever or chills. She has had fatigue. She is currently on 2 liters of oxygen. She smokes. She experiences approximately one episode of acute exacerbation of COPD per year. She uses metered-dose inhalers. PAST MEDICAL HISTORY: COPD, hypertension, hyperlipidemia, hypothyroidism, anxiety, tobacco dependent. PAST SURGICAL HISTORY: No recent major surgeries. ALLERGIES: No known drug allergies. REVIEW OF SYSTEMS: CONSTITUTIONAL: No fever or chills. EYES: No change in visual acuity. HENT: No nasal congestion or sore throat. PULMONARY: As indicated above. GASTROINTESTINAL: No nausea, vomiting, diarrhea. GENITOURINARY: No dysuria or frequency. MUSCULOSKELETAL: No localized muscle aches or joint pains. SKIN: No new skin rashes. NEUROLOGIC: No headaches, diplopia or blurred vision. CURRENT MEDICATIONS: List was reviewed. The patient has been seen by Infectious Disease service. She is currently on doxycycline. In addition, she is on dexamethasone. PHYSICAL EXAMINATION: VITAL SIGNS: Stable, oxygen saturation currently on 1 liter greater than 92%. EYES: The sclerae were nonicteric. NECK: Jugular venous distention was not elevated. No lymphadenopathy. CHEST: Full expansion. LUNGS: Adequate flow with no wheezes. CARDIOVASCULAR: Regular rate and rhythm with S1, S2, no S3. ABDOMEN: Soft. EXTREMITIES: No clubbing, cyanosis or edema. NEUROLOGIC: The patient was awake, alert, following commands. A detailed neuro exam was not performed. LABORATORY DATA: Reviewed. White count was normal. Electrolytes were normal. BUN and creatinine was noted. IMPRESSION: 1. Acute hypoxemic respiratory failure secondary to COVID-19 viral pneumonia. 2. COVID-19 viral pneumonia. 3. Possible bacterial pneumonia. 4. Chronic obstructive pulmonary disease exacerbation. 5. Tobacco dependent. PLAN: 1. Continue current support with antibiotics and steroids. 2. DVT prophylaxis. 3. If the patient continues to do well, we will perform a 6-minute walk and possible discharge in the a.m. I do appreciate the privilege in sharing in the patient's care. DESTINEY DR: Mariaa TID: [id number]
[2021-09-13 18:56] VITALS: BP 121/66
[2021-09-13] MEDS: ENOXAPARIN 40 MG/0.4 ML SYRINGE. SQ SCH (21:00)
[2021-09-13] MEDS: ALPRAZolam 0.25 MG TABLET PO PRN (21:35)
[2021-09-13] MEDS: LACTOBACILLUS RHAMNOSUS GG 1 CAPSULE. PO SCH (21:36)
[2021-09-13] MEDS: ATORVASTATIN CALCIUM 10 MG TABLET. PO SCH (21:36)
[2021-09-13] MEDS: FAMOTIDINE 20 MG TABLET. PO SCH (21:36)
[2021-09-13 22:42] VITALS: BP 136/73
[2021-09-14 02:40] VITALS: BP 133/75
[2021-09-14] MEDS: IV NORMAL SALINE 1000ML BAG 1,000 ML IV SCH ×2 (04:12→10:37)
[2021-09-14] MEDS: LEVOTHYROXINE 125 MCG TABLET PO SCH (05:42)
[2021-09-14] MEDS: ALPRAZolam 0.25 MG TABLET PO PRN ×2 (05:42→20:47)
[2021-09-14 07:00] VITALS: BP 143/77
--- NOTE | 2021-09-14 08:25 | PDOC ---
Infectious Disease Note Subjective: Subjective Patient feels better today On O2 by nasal cannula 2 L Has a lot of productive white sputum Appetite is improving next Vital Signs: Vital Signs Vital Signs Date Time Temp Pulse Resp B/P (MAP) Pulse Ox O2 Delivery O2 Flow Rate FiO2 09/14/21 02:40 97.9 79 18 133/75 (94) 95 Nasal Cannula 2.0 97.9 Physical Exam: PHYSICAL EXAM GENERAL: Alert, oriented x 3 female, in no acute distress, lying comfortably in bed, looks better. Nontoxic-appearing. HEENT: Normocephalic, atraumatic. Anicteric. Oral mucosa is dry. NECK: Supple, no JVD, no lymphadenopathy. LUNGS: Clear bilaterally except for some scattered rhonchi. No accessory muscle use. ABDOMEN: Soft, nontender, nondistended, no rebound or guarding. EXTREMITIES: No edema, no cyanosis. DERMATOLOGIC: Warm, dry, no generalized rash. NEUROLOGIC: Alert, oriented x 3, grossly nonfocal. PSYCHIATRIC: Calm and cooperative. Medications: Inpatient Meds: Medications reviewed. Objective: Assessment: 1. COVID-19 pneumonia. 2. Generalized myalgia. 3. Acute hypoxic respiratory failure. 4. Hypertension/hyperlipidemia. 5. Anxiety. 6. Tobacco dependence. Plan: Plan of Care 1. Continue azithromycin. 2. Discontinue ceftriaxone. 3. Continue supportive care. 4. Steroids per primary. GASTON COVARRUBIAS MD Sep 14, 2021 08:25
--- NOTE | 2021-09-14 08:51 | PDOC ---
PULMONARY PROGRESS NOTES DATE: 09/14/21 TIME: 08:51 Subjective Patient feels about the same, short of breath this morning. Currently on 2 L. Vitals Vital Signs Date Time Temp Pulse Resp B/P (MAP) Pulse Ox O2 Delivery O2 Flow Rate FiO2 09/14/21 02:40 97.9 79 18 133/75 (94) 95 Nasal Cannula 2.0 97.9 ROS: No Nausea, No Chest Pain, No Abdominal Pain, No Increase Cough General: Alert Lungs: Crackles Cardiovascular: S1, S2 Abdomen: Soft Neuro Exam: Alert Extremities: No Edema Skin: Warm Labs Laboratory Tests Test 09/13/21 04:45 White Blood Count 4.5 x10^3/uL (4.0-11.0) Red Blood Count 4.06 x10^6/uL (3.50-5.40) Hemoglobin 13.0 g/dL (12.0-15.5) Hematocrit 39.3 % (36.0-47.0) Mean Corpuscular Volume 97 fL (79-100) Mean Corpuscular Hemoglobin 32 pg (25-35) Mean Corpuscular Hemoglobin Concent 33 g/dL (31-37) Red Cell Distribution Width 14.3 % (11.5-14.5) Platelet Count 159 x10^3/uL (140-400) Neutrophils (%) (Auto) 56 % (31-73) Lymphocytes (%) (Auto) 34 % (24-48) Monocytes (%) (Auto) 10 % (0-9) Eosinophils (%) (Auto) 0 % (0-3) Basophils (%) (Auto) 0 % (0-3) Neutrophils # (Auto) 2.5 x10^3/uL (1.8-7.7) Lymphocytes # (Auto) 1.6 x10^3/uL (1.0-4.8) Monocytes # (Auto) 0.4 x10^3/uL (0.0-1.1) Eosinophils # (Auto) 0.0 x10^3/uL (0.0-0.7) Basophils # (Auto) 0.0 x10^3/uL (0.0-0.2) Sodium Level 143 mmol/L (136-145) Potassium Level 4.2 mmol/L (3.5-5.1) Chloride Level 108 mmol/L (98-107) Carbon Dioxide Level 25 mmol/L (21-32) Anion Gap 10 (6-14) Blood Urea Nitrogen 7 mg/dL (7-20) Creatinine 0.4 mg/dL (0.6-1.0) Estimated GFR (Cockcroft-Gault) 159.7 Glucose Level 110 mg/dL (70-99) Calcium Level 8.1 mg/dL (8.5-10.1) Medications Active Scripts Medications Dose Route/Sig Max Daily Dose Days Date Category Augmentin 875-125 Tablet (Amoxicillin/Potassium Clav) 1 Each Tablet 1 Tab PO BID 10 06/28/21 Rx Impression . IMPRESSION: 1. Acute hypoxemic respiratory failure secondary to COVID-19 viral pneumonia. 2. COVID-19 viral pneumonia. 3. Possible bacterial pneumonia. 4. Chronic obstructive pulmonary disease exacerbation. 5. Tobacco dependent. Plan . Updated 09/14 Patient doing better Continue current support If he continues to do well may be discharge in the next 24 to 48 hours 6-minute walk in the a.m. PLAN: 1. Continue current support with antibiotics and steroids. 2. DVT prophylaxis. 3. If the patient continues to do well, we will perform a 6-minute walk and possible discharge in the a.m. I do appreciate the privilege in sharing in the patient's care. KONG KNOTT MD Sep 14, 2021 08:51
[2021-09-14] MEDS: LACTOBACILLUS RHAMNOSUS GG 1 CAPSULE. PO SCH ×2 (09:33→20:47)
[2021-09-14] MEDS: IPRATROPIUM/ALBUTEROL 20/100mcg/INH INHALER. INH SCH ×4 (09:33→20:48)
[2021-09-14] MEDS: SERTRALINE 50 MG TABLET. PO SCH (09:33)
[2021-09-14] MEDS: AZITHROMYCIN 250 MG TABLET. PO SCH (09:33)
[2021-09-14] MEDS: DEXAMETHASONE SOD PHOS 4 MG/ML VIAL IVP SCH (09:33)
--- NOTE | 2021-09-14 10:45 | NUR ---
SW following. Discussed with RN, pt from home. Oxygen needs are bouncing around per RN, depending on what pt is doing. Pt will likely need a 6 minute walk prior to discharge. COVID-19 positive. Pt wants to go home. SW will continue to follow.
[2021-09-14 11:00] VITALS: BP 129/67
--- NOTE | 2021-09-14 11:04 | PDOC ---
PROGRESS NOTES Date of Service DATE: 09/14/21 TIME: 11:01 Subjective Subjective nurse notes she was more hypoxic with talking at rest and increased oxygen to 2LNC feels better,. not short of breath. Objective Objective Vital Signs Date Time Temp Pulse Resp B/P (MAP) Pulse Ox O2 Delivery O2 Flow Rate FiO2 09/14/21 08:00 Nasal Cannula 2.0 09/14/21 07:00 97.4 83 18 143/77 (99) 97 97.4 Intake and Output 09/14/21 07:00 Intake Total 120 ml Output Total 600 ml Balance -480 ml Intake Oral 120 ml Output Urine Total 600 ml # Voids 2 Physical Exam Abdomen: Soft Heart: Regular rate, Normal S1, Normal S2 Extremities: No edema General: Alert HEENT: Atraumatic Lungs: Other (decreasd breath sounds. few rhonchi) Neck: Supple Neuro: Normal speech Psych/Mental Status: Mental status NL Skin: No rashes Assessment Assessment Problems1. COVID-19 viral pneumonia. 2. Acute hypoxic respiratory failure due to COVID-19 viral pneumonia. 3. Hypertension. 4. Hyperlipidemia. 5. Hypothyroidism. 6. Cigarette smoker. Medical Problems: (1) Hypoxia Status: Acute (2) Pneumonia due to COVID-19 virus Status: Acute Plan Plan of Care continue oxygen and albuterol inhaler and iv dexamethasone and rocephin d/c iv fluids continue zithromax continue lovenox for dvt prophylaxis Comment Review of Relevant I have reviewed the following items brian (where applicable) has been applied. Labs Laboratory Tests Test 09/13/21 04:45 White Blood Count 4.5 x10^3/uL (4.0-11.0) Red Blood Count 4.06 x10^6/uL (3.50-5.40) Hemoglobin 13.0 g/dL (12.0-15.5) Hematocrit 39.3 % (36.0-47.0) Mean Corpuscular Volume 97 fL (79-100) Mean Corpuscular Hemoglobin 32 pg (25-35) Mean Corpuscular Hemoglobin Concent 33 g/dL (31-37) Red Cell Distribution Width 14.3 % (11.5-14.5) Platelet Count 159 x10^3/uL (140-400) Neutrophils (%) (Auto) 56 % (31-73) Lymphocytes (%) (Auto) 34 % (24-48) Monocytes (%) (Auto) 10 % (0-9) Eosinophils (%) (Auto) 0 % (0-3) Basophils (%) (Auto) 0 % (0-3) Neutrophils # (Auto) 2.5 x10^3/uL (1.8-7.7) Lymphocytes # (Auto) 1.6 x10^3/uL (1.0-4.8) Monocytes # (Auto) 0.4 x10^3/uL (0.0-1.1) Eosinophils # (Auto) 0.0 x10^3/uL (0.0-0.7) Basophils # (Auto) 0.0 x10^3/uL (0.0-0.2) Sodium Level 143 mmol/L (136-145) Potassium Level 4.2 mmol/L (3.5-5.1) Chloride Level 108 mmol/L (98-107) Carbon Dioxide Level 25 mmol/L (21-32) Anion Gap 10 (6-14) Blood Urea Nitrogen 7 mg/dL (7-20) Creatinine 0.4 mg/dL (0.6-1.0) Estimated GFR (Cockcroft-Gault) 159.7 Glucose Level 110 mg/dL (70-99) Calcium Level 8.1 mg/dL (8.5-10.1) Microbiology 09/12/21 Blood Culture - Preliminary, Resulted NO GROWTH AFTER 1 DAY Medications Current Medications Sodium Chloride 1,000 ml @ 1,000 mls/hr 1X ONCE IV Last administered on 09/12/21at 07:18; Start 09/12/21 at 06:45; Stop 09/12/21 at 07:44; Status DC Dexamethasone Sodium Phosphate (Decadron) 10 mg 1X ONCE IVP Last administered on 09/12/21at 07:18; Start 09/12/21 at 06:45; Stop 09/12/21 at 06:46; Status DC Albuterol/ Ipratropium (Duoneb) 3 ml 1X ONCE NEB Last administered on 09/12/21at 07:15; Start 09/12/21 at 06:45; Stop 09/12/21 at 06:46; Status DC Nicotine (Nicoderm Cq 21mg) 1 patch 1X ONCE TD Last administered on 09/12/21at 10:17; Start 09/12/21 at 09:45; Stop 09/12/21 at 09:46; Status DC Ceftriaxone Sodium (Rocephin) 1 gm 1X ONCE IVP Last administered on 09/12/21at 10:17; Start 09/12/21 at 10:15; Stop 09/12/21 at 10:16; Status DC Azithromycin 250 ml @ 250 mls/hr 1X ONCE IV Last administered on 09/12/21at 10:17; Start 09/12/21 at 10:15; Stop 09/12/21 at 11:14; Status DC Ondansetron HCl (Zofran) 4 mg PRN Q8HRS PRN IVP NAUSEA/VOMITING; Start 09/12/21 at 10:45; Stop 09/13/21 at 10:44; Status DC Sodium Chloride 1,000 ml @ 100 mls/hr Q10H IV Last administered on 09/13/21at 06:36; Start 09/12/21 at 10:45; Stop 09/13/21 at 10:44; Status DC Acetaminophen (Tylenol) 650 mg PRN Q4HRS PRN PO FEVER > 100.3'F Last administered on 09/12/21at 21:07; Start 09/12/21 at 10:45; Stop 09/13/21 at 10:44; Status DC Albuterol/ Ipratropium (Duoneb) 3 ml Q6HRS NEB Last administered on 09/12/21at 11:59; Start 09/12/21 at 12:00; Stop 09/12/21 at 19:42; Status DC Dexamethasone Sodium Phosphate (Decadron) 6 mg DAILY IVP Last administered on 09/14/21at 09:33; Start 09/13/21 at 09:00 Ceftriaxone Sodium (Rocephin) 1 gm Q24H IVP Last administered on 09/13/21at 09:01; Start 09/13/21 at 10:00; Stop 09/13/21 at 09:58; Status DC Azithromycin (Zithromax) 250 mg DAILY PO Last administered on 09/14/21at 09:33; Start 09/13/21 at 09:00 Alprazolam (Xanax) 0.25 mg PRN Q8HRS PRN PO ANXIETY / AGITATION Last administered on 09/14/21 05:42; Start 09/12/21 at 16:45 Levothyroxine Sodium (Synthroid) 125 mcg DAILY06 PO Last administered on 09/14/21 05:42; Start 09/13/21 at 06:00 Atorvastatin Calcium (Lipitor) 10 mg QHS PO Last administered on 09/13/21 21:36; Start 09/12/21 at 21:00 Sertraline HCl (Zoloft) 100 mg DAILY PO Last administered on 09/14/21at 09:33; Start 09/13/21 at 09:00 Enoxaparin Sodium (Lovenox 40mg Syringe) 40 mg Q24H SQ Last administered on 09/12/21at 21:07; Start 09/12/21 at 21:00 Famotidine (Pepcid) 20 mg QHS PO Last administered on 09/13/21at 21:36; Start 09/12/21 at 21:00 Sodium Chloride 1,000 ml @ 60 mls/hr [id number] IV Last administered on 09/14/21at 10:37; Start 09/12/21 at 17:00 Albuterol/ Ipratropium (Combivent Respimat 20-100 Mcg) 1 puff RTQID INH Last administered on 09/14/21 09:33; Start 09/12/21 at 20:00 Lactobacillus Rhamnosus (Culturelle) 1 cap BID PO Last administered on 09/14/21 09:33; Start 09/13/21 at 21:00 Active Scripts Active Augmentin 875-125 Tablet (Amoxicillin/Potassium Clav) 1 Each Tablet 1 Tab PO BID 10 Days Vitals/I & O Vital Sign - Last 24 Hours 09/13/21 09/13/21 09/13/21 09/13/21 15:00 18:56 20:00 22:42 Temp 97.8 97.9 97.8 97.8 97.9 97.8 Pulse 77 75 72 Resp 18 18 18 B/P (MAP) 124/70 (88) 121/66 (84) 136/73 (94) Pulse Ox 95 95 94 O2 Delivery Nasal Cannula Nasal Cannula Nasal Cannula O2 Flow Rate 1.0 2.0 2.0 09/14/21 09/14/21 09/14/21 02:40 07:00 08:00 Temp 97.9 97.4 97.9 97.4 Pulse 79 83 Resp 18 18 B/P (MAP) 133/75 (94) 143/77 (99) Pulse Ox 95 97 O2 Delivery Nasal Cannula Nasal Cannula Nasal Cannula O2 Flow Rate 2.0 2.0 2.0 Intake and Output 09/13/21 09/13/21 09/14/21 15:00 23:00 07:00 Intake Total 120 ml Output Total 600 ml Balance 120 ml -600 ml Justifications for Admission Other Justification ROSITA WALLER MD Sep 14, 2021 11:04
[2021-09-14 15:00] VITALS: BP 119/73
[2021-09-14 19:00] VITALS: BP 139/72
[2021-09-14] MEDS: FAMOTIDINE 20 MG TABLET. PO SCH (20:47)
[2021-09-14] MEDS: ENOXAPARIN 40 MG/0.4 ML SYRINGE. SQ SCH (20:47)
[2021-09-14] MEDS: ATORVASTATIN CALCIUM 10 MG TABLET. PO SCH (20:47)
[2021-09-14 23:00] VITALS: BP 163/84
[2021-09-15 03:00] VITALS: BP 159/89
[2021-09-15] MEDS: LEVOTHYROXINE 125 MCG TABLET PO SCH (05:27)
[2021-09-15] MEDS: ALPRAZolam 0.25 MG TABLET PO PRN (05:27)
[2021-09-15 07:00] VITALS: BP 165/80
--- NOTE | 2021-09-15 07:56 | PDOC ---
Infectious Disease Note Subjective: Subjective Patient feels better Vital Signs: Vital Signs Vital Signs Date Time Temp Pulse Resp B/P (MAP) Pulse Ox O2 Delivery O2 Flow Rate FiO2 09/15/21 03:00 96.2 65 20 159/89 (112) 94 Nasal Cannula 1.0 96.2 Physical Exam: PHYSICAL EXAM GENERAL: Alert, oriented x 3 female, in no acute distress, lying comfortably in bed, looks better. Nontoxic-appearing. HEENT: Normocephalic, atraumatic. Anicteric. Oral mucosa is dry. NECK: Supple, no JVD, no lymphadenopathy. LUNGS: Clear bilaterally except for some scattered rhonchi. No accessory muscle use. ABDOMEN: Soft, nontender, nondistended, no rebound or guarding. EXTREMITIES: No edema, no cyanosis. DERMATOLOGIC: Warm, dry, no generalized rash. NEUROLOGIC: Alert, oriented x 3, grossly nonfocal. PSYCHIATRIC: Calm and cooperative. Medications: Inpatient Meds: Medications reviewed. Objective: Assessment: 1. COVID-19 pneumonia. 2. Generalized myalgia. 3. Acute hypoxic respiratory failure. 4. Hypertension/hyperlipidemia. 5. Anxiety. 6. Tobacco dependence. Plan: Plan of Care 1. complete azithromycin. 2. Continue supportive care. 3. Steroids per primary. GASTON COVARRUBIAS MD Sep 15, 2021 07:56
[2021-09-15] MEDS: LACTOBACILLUS RHAMNOSUS GG 1 CAPSULE. PO SCH (09:19)
[2021-09-15] MEDS: AZITHROMYCIN 250 MG TABLET. PO SCH (09:19)
[2021-09-15] MEDS: SERTRALINE 50 MG TABLET. PO SCH (09:19)
[2021-09-15] MEDS: DEXAMETHASONE SOD PHOS 4 MG/ML VIAL IVP SCH (09:20)
[2021-09-15] MEDS: IPRATROPIUM/ALBUTEROL 20/100mcg/INH INHALER. INH SCH ×2 (09:20→12:00)
[2021-09-15 11:00] VITALS: BP 150/83
--- NOTE | 2021-09-15 11:35 | PDOC ---
PROGRESS NOTES Date of Service DATE: 09/15/21 TIME: 11:32 Subjective Subjective feels better. not short of breath. cough with clear sputum. oxygen 1LNC and oxygen sats okay. nurse to check oxygen sat on RA rest and 6 min wak. Objective Objective Vital Signs Date Time Temp Pulse Resp B/P (MAP) Pulse Ox O2 Delivery O2 Flow Rate FiO2 09/15/21 11:00 97.3 74 18 150/83 (105) 94 Nasal Cannula 1.0 97.3 Intake and Output 09/15/21 07:00 Intake Total 700 ml Balance 700 ml Intake Oral 700 ml # Voids 4 # Bowel Movements 2 Physical Exam Abdomen: Soft Heart: Regular rate, Normal S1, Normal S2 Extremities: No edema General: Alert HEENT: Atraumatic Lungs: Other (decreased breath sounds with few rhonchi) Neuro: Normal speech Psych/Mental Status: Mental status NL Skin: No rashes Assessment Assessment Problems1. COVID-19 viral pneumonia. 2. Acute hypoxic respiratory failure due to COVID-19 viral pneumonia. 3. Hypertension. 4. Hyperlipidemia. 5. Hypothyroidism. 6. Cigarette smoker. Medical Problems: (1) Hypoxia Status: Acute (2) Pneumonia due to COVID-19 virus Status: Acute Plan Plan of Care finish zithromax today check RA oxygen sat rest and 6 min walk to see if she needs home oxygen dismiss today continue decadron Comment Review of Relevant I have reviewed the following items brian (where applicable) has been applied. Labs Microbiology 09/12/21 Blood Culture - Preliminary, Resulted NO GROWTH AFTER 2 DAYS Medications Current Medications Sodium Chloride 1,000 ml @ 1,000 mls/hr 1X ONCE IV Last administered on 09/12/21at 07:18; Start 09/12/21 at 06:45; Stop 09/12/21 at 07:44; Status DC Dexamethasone Sodium Phosphate (Decadron) 10 mg 1X ONCE IVP Last administered on 09/12/21at 07:18; Start 09/12/21 at 06:45; Stop 09/12/21 at 06:46; Status DC Albuterol/ Ipratropium (Duoneb) 3 ml 1X ONCE NEB Last administered on 09/12/21at 07:15; Start 09/12/21 at 06:45; Stop 09/12/21 at 06:46; Status DC Nicotine (Nicoderm Cq 21mg) 1 patch 1X ONCE TD Last administered on 09/12/21at 10:17; Start 09/12/21 at 09:45; Stop 09/12/21 at 09:46; Status DC Ceftriaxone Sodium (Rocephin) 1 gm 1X ONCE IVP Last administered on 09/12/21at 10:17; Start 09/12/21 at 10:15; Stop 09/12/21 at 10:16; Status DC Azithromycin 250 ml @ 250 mls/hr 1X ONCE IV Last administered on 09/12/21at 10:17; Start 09/12/21 at 10:15; Stop 09/12/21 at 11:14; Status DC Ondansetron HCl (Zofran) 4 mg PRN Q8HRS PRN IVP NAUSEA/VOMITING; Start 09/12/21 at 10:45; Stop 09/13/21 at 10:44; Status DC Sodium Chloride 1,000 ml @ 100 mls/hr Q10H IV Last administered on 09/13/21at 06:36; Start 09/12/21 at 10:45; Stop 09/13/21 at 10:44; Status DC Acetaminophen (Tylenol) 650 mg PRN Q4HRS PRN PO FEVER > 100.3'F Last administered on 09/12/21at 21:07; Start 09/12/21 at 10:45; Stop 09/13/21 at 10:44; Status DC Albuterol/ Ipratropium (Duoneb) 3 ml Q6HRS NEB Last administered on 09/12/21at 11:59; Start 09/12/21 at 12:00; Stop 09/12/21 at 19:42; Status DC Dexamethasone Sodium Phosphate (Decadron) 6 mg DAILY IVP Last administered on 09/15/21at 09:20; Start 09/13/21 at 09:00 Ceftriaxone Sodium (Rocephin) 1 gm Q24H IVP Last administered on 09/13/21at 09:01; Start 09/13/21 at 10:00; Stop 09/13/21 at 09:58; Status DC Azithromycin (Zithromax) 250 mg DAILY PO Last administered on 09/15/21at 09:19; Start 09/13/21 at 09:00 Alprazolam (Xanax) 0.25 mg PRN Q8HRS PRN PO ANXIETY / AGITATION Last administered on 09/15/21 05:27; Start 09/12/21 at 16:45 Levothyroxine Sodium (Synthroid) 125 mcg DAILY06 PO Last administered on 09/15/21 05:27; Start 09/13/21 at 06:00 Atorvastatin Calcium (Lipitor) 10 mg QHS PO Last administered on 09/14/21at 20:47; Start 09/12/21 at 21:00 Sertraline HCl (Zoloft) 100 mg DAILY PO Last administered on 09/15/21 09:19; Start 09/13/21 at 09:00 Enoxaparin Sodium (Lovenox 40mg Syringe) 40 mg Q24H SQ Last administered on 09/14/21 20:47; Start 09/12/21 at 21:00 Famotidine (Pepcid) 20 mg QHS PO Last administered on 09/14/21at 20:47; Start 09/12/21 at 21:00 Sodium Chloride 1,000 ml @ 60 mls/hr [id number] IV Last administered on 09/14/21at 10:37; Start 09/12/21 at 17:00; Stop 09/14/21 at 11:01; Status DC Albuterol/ Ipratropium (Combivent Respimat 20-100 Mcg) 1 puff RTQID INH Last administered on 09/15/21at 09:20; Start 09/12/21 at 20:00 Lactobacillus Rhamnosus (Culturelle) 1 cap BID PO Last administered on 09/15/21 09:19; Start 09/13/21 at 21:00 Active Scripts Active Augmentin 875-125 Tablet (Amoxicillin/Potassium Clav) 1 Each Tablet 1 Tab PO BID 10 Days Vitals/I & O Vital Sign - Last 24 Hours 09/14/21 09/14/21 09/14/21 09/14/21 15:00 19:00 20:00 23:00 Temp 98.3 96.2 95.8 98.3 96.2 95.8 Pulse 72 76 77 Resp 17 20 20 B/P (MAP) 119/73 (88) 139/72 (94) 163/84 (110) Pulse Ox 96 96 96 O2 Delivery Nasal Cannula Nasal Cannula Nasal Cannula Nasal Cannula O2 Flow Rate 1.0 1.0 2.0 1.0 09/15/21 09/15/21 09/15/21 03:00 07:00 11:00 Temp 96.2 96.5 97.3 96.2 96.5 97.3 Pulse 65 73 74 Resp 20 18 18 B/P (MAP) 159/89 (112) 165/80 (108) 150/83 (105) Pulse Ox 94 97 94 O2 Delivery Nasal Cannula Nasal Cannula Nasal Cannula O2 Flow Rate 1.0 1.0 1.0 Intake and Output 09/14/21 09/14/21 09/15/21 15:00 23:00 07:00 Intake Total 200 ml 500 ml Balance 200 ml 500 ml Justifications for Admission Other Justification ROSITA WALLER MD Sep 15, 2021 11:35
[2021-09-15] MEDS ORDERED: DEXA4TAB63 PO (11:50)
[2021-09-15] MEDS ORDERED: AMLO-187 PO (11:50)
[2021-09-15] MEDS ORDERED: SERT-267 PO (11:50)
[2021-09-15] MEDS ORDERED: LOVA20TA2 PO (11:50)
[2021-09-15] MEDS ORDERED: LEVO125T5 PO (11:50)
[2021-09-15] MEDS ORDERED: ALPR0.254 PO (11:50)
--- NOTE | 2021-09-15 11:51 | DISCH ---
DISCHARGE INSTRUCTIONS Condition on Discharge Condition on Discharge: Stable Activity After Discharge Activity Instructions for Disc: Resume previous activity Diet after Discharge Diet after Discharge: Regular Contacting the DRTiffanie after DC Call your doctor for: If your condition worsens Follow-Up Follow up with: dr. waller in 2 weeks ROSITA WALLER MD Sep 15, 2021 11:51
--- NOTE | 2021-09-15 11:55 | PDOC ---
Provider Note Date of Service: DATE: 09/15/21 TIME: 11:55 Provider Note discharge summary dictated # [id number] Justifications for Admission Other Justification ROSITA WALLER MD Sep 15, 2021 11:55
[2021-09-15 12:43] VITALS: BP 150/83
--- NOTE | 2021-09-15 14:21 | DS ---
DATE OF DISCHARGE: 09/15/2021 MACHINE LEARNING INTERN: Xiao Hopper MD and Tita Gaona MD FINAL DIAGNOSES: 1. COVID-19 viral pneumonia. 2. Acute hypoxic respiratory failure due to COVID-19 viral pneumonia. 3. Hypertension. 4. Hyperlipidemia. 5. Hypothyroidism. 6. Cigarette smoker. HOSPITAL COURSE: The patient is a 66-year-old white female with a history of hypertension, hyperlipidemia, hypothyroidism, anxiety, cigarette smoker, smokes 1 pack per day for 40 years and chronic cough with scant sputum and has not received her COVID-19 viral vaccinations per her choice who noted a 1-week history of diffuse arthralgias and myalgias with a 4-day history of shortness of breath and had some nausea and poor appetite, which began on before admission. She sought help at the [facility] Emergency Room where a COVID-19 viral test was positive on 09/12/2021. She had influenza test that was negative. Chest x-ray also showed bilateral lung infiltrates, diagnosed with COVID-19 viral pneumonia, seen by the Infectious Disease doctor, Dr. Xiao Hopper and the buffer automatic, Dr. Gaona, treated with oxygen, started on 2 liters, currently on 1 liter nasal cannula. We want to see how her oxygen saturations on room air with rest and a 6-minute walk on room air. Her symptoms improved. She received IV Rocephin and Zithromax and finished a course of Zithromax today. The Rocephin was discontinued after a couple days. She was started on IV dexamethasone, which will be switched to oral dexamethasone starting tomorrow. Shortness of breath improved, she felt much better, but still had a cough with clear sputum. I discussed the case with Dr. Xiao Hopper, who said she can return to work in 10 days from today, so she can return to work 09/26. So she is excused from work on 08/31 through 09/25 and return to work on 09/26 and she will be dismissed on Decadron 6 mg p.o. daily for another 4 days, sertraline 100 mg every day, lovastatin 10 mg every day, levothyroxine 125 mcg every day, aspirin 325 mg every day, amlodipine 10 mg every day, alprazolam 0.25 mg b.i.d. p.r.n., albuterol inhaler 1-2 puffs every 6 hours p.r.n. and we will see if she needs to be on oxygen, pending on these results. She will make an appointment to see Dr. De La Rosa in the office in about [address]: Júnior TID: [id number]
--- NOTE | 2021-09-15 16:02 | NUR ---
pt was discahrged home today with self care, she had a 6 min walk and needed no oxygen and O2 sats were in the 90's. I gave pt scripts for dexamethasone and one was her note for work. there were also many scripts that Estrella sent in electronically for this pt. she was given the instruction to see Estrella at his office for check up after the Sep. Landry Rao RN
[2021-09-16] MEDS ORDERED: DEXAMETHASONE 4 MG TABLET PO SCH (08:00)
== END 2021-09-15 14:00 | disposition home or self-care (01) | DRG 177 ==
LOC: ER 05:46 → ED HOLD 10:25 → 5 NORTH 10:42
PROVIDERS: ADMIT Internal Medicine; ATTEND Internal Medicine
DX: U07.1 COVID-19 (principal); J12.82 Pneumonia due to coronavirus disease 2019; J96.01 Acute respiratory failure with hypoxia; J44.0 Chronic obstructive pulmonary disease with (acute) lower respiratory infection; J44.1 Chronic obstructive pulmonary disease with (acute) exacerbation; E03.9 Hypothyroidism, unspecified; E78.5 Hyperlipidemia, unspecified; F17.210 Nicotine dependence, cigarettes, uncomplicated; F41.9 Anxiety disorder, unspecified; I10 Essential (primary) hypertension; Z79.82 Long term (current) use of aspirin; Z79.890 Hormone replacement therapy; Z82.49 Family history of ischemic heart disease and other diseases of the circulatory system; Z83.3 Family history of diabetes mellitus; Z79.899 Other long term (current) drug therapy
CPT/HCPCS: 36415; 71045; 80048; 80053; 82553; 83605; 83735; 84484; 85025; 87040; 87426; 87804; 93005; 94618; 94640; 96361; 96365; 96375; 96376; J0456; J0696; J1100; J1650; J7030; 99291-25; G0378